=== PATIENT | female | born 1950 | race Caucasian/White ===

== ENCOUNTER → 2017-11-20 | Outpatient (CLI) | payer MEDICARE ==
[~2017-11-20] MED LIST: ACTICIN 5% CREA60 G1; ALBUTEROL INH; ANTACID DOUBLE360 M1 PER TUBE; APAP500 PO; ARTIFICIAL TEA1 EAC1 OP; AUGMENTIN 875-1 EACH PO; AZITHROMYCIN 2250 MG PO; BUSPAR15 MG; CENTANY30 GM TOP; CIPROFLOXACIN500 M1 PO; CLONAZEPAM; CLONAZEPAM 0.50.5 M1 PO; CLONAZEPAM PO; COUMADIN 1MG TAB1 M1 PO; COUMADIN 2 MG TA2 M1 PO; DERMOLATE ANTI-I2 GM; DESYREL50 MG; DESYREL50 MG PO; DIPHENHYDRAMINE25 M3 PO; ENOXAPARIN100 MG/1 M SQ; FLOMAX0.4 MG PO; FLONASE16 GM; GENTEAL GEL DRO15 ML; GERI-MOX ANTAC355 ML PO; HOME MEDICATION PO; HYDROCODON-ACE1 EAC7 PO; HYDROCODON-ACE1 EACH PO; JANTOVEN6 MG PO; LEVOTHYROXIN0.025 MG PO; LIQUID TEARS OPHTHALMIC; METADATE CD20 MG; METHYLIN 10 MG10 M1 PO; METHYLIN 10 MG10 MG PO; METHYLIN10 M1; MIRALAX255 GM PO; NORCO 5-325 TA1 EAC1 PO; NORCO 5-325 TA1 EACH PO; OMEPRAZOLE20 MG; PATADAY2.5 ML OP; PERCOCET 5-3251 EACH PO; PHENERGAN 25 MG25 M1 PO; PRAVACHOL40 MG; PRAVACHOL40 MG PO; PREDNISONE 10 M10 MG; PROAIR HFA8.5 GM INH; PROVENTIL HFA6.7 G1; PROVENTIL HFA6.7 G1 INH; RITALIN LA20 MG PO; ROBAXIN 750 MG750 M1 PO; SIMVASTATIN40 MG PO; SINGULAIR 10 MG10 M1; TRIAMCINOLONE A80 G2 TOP; TYLENOL325 MG PO; VENTOLIN HFA INH8 GM; VICODIN 5-5001 EACH PO; XANAX 0.5 MG0.5 M1; ZOCOR40 MG; ZOFRAN 4 MG ORAL4 MG PO; ZOFRAN ODT4 MG PO; ZOLOFT 50 MG TA50 M1 PO; ZPAK PO; ZYRTEC10 M1
== END ==
LOC: M.RAD 14:22
DX: M25.461 Effusion, right knee (principal); E87.0 Hyperosmolality and hypernatremia

== ENCOUNTER → 2018-06-10 | Outpatient (CLI) | payer OTHER | LOC: M.CT 09:06 | DX: Z13.6 Encounter for screening for cardiovascular disorders (principal); E78.5 Hyperlipidemia, unspecified ==

== ENCOUNTER 2019-06-08 11:02 | Emergency (ER) | payer MEDICARE ==
[~2019-06-08] VITALS: Ht 165.1 cm; Wt 108.9 kg
[~2019-06-08 11:02] MED LIST changes: -AUGMENTIN 500-1 EACH PO
[2019-06-08 13:03] LABS: URINE BILIRUBIN NEGATIVE (Negative); URINE BLOOD NEGATIVE (Negative); URINE CLARITY CLEAR; URINE COLOR YELLOW; URINE GLUCOSE-RANDOM NEGATIVE (Negative); URINE KETONES NEGATIVE (Negative); URINE LEUKOCYTES-REFLEX 1+ (Negative); URINE NITRITE-REFLEX NEGATIVE (Negative); URINE PROTEIN NEGATIVE (Negative); URINE SPECIFIC GRAVITY >= 1.030 (1.005-1.030); URINE UROBILINOGEN 0.2 E.U./dl (0.2-1.0)
[2019-06-08 13:16] LABS: CASTS None Seen /LPF (None Seen); CRYSTALS None Seen /LPF (None Seen); MUCUS 0-3 Light strn/LPF (None Seen); SQUAMOUS 4-10 Moderate /LPF (0-3); URINE RBC 0-2 Rare /HPF (0-2); URINE WBC-REFLEX 6-15 Few /HPF (0-5)
[2019-06-08 13:27] LABS: ABSOLUTE EOSINOPHILS 0.2 thou/uL (0.0-0.7); ABSOLUTE LYMPHOCYTES 2.1 thou/uL (0.8-5.3); ABSOLUTE MONOCYTES 0.5 thou/uL (0.0-1.2); ABSOLUTE NEUTROPHILS 3.2 thou/uL (1.6-8.1); BASOPHILS 0.6 %; EOSINOPHILS 3.4 %; HEMATOCRIT 39.2 % (37.0-47.0); HEMOGLOBIN 13.5 gm/dL (12.0-15.0); LYMPHOCYTES 34.2 %; MCH 29.8 pg (26.0-34.0); MCHC 34.4 g/dL (28.0-37.0); MCV 86.6 fL (80.0-100.0); MPV 8.4 fl. (7.2-11.1); NUCLEATED RBCS 0 /100WBC; PLATELET COUNT* 193 thou/uL (150-400); POLYS 52.8 %; RBC 4.53 mil/uL (4.20-5.00); RDW-CV 14.4 % (10.5-14.5); WBC 6.1 thou/uL (4.0-11.0)
[2019-06-08 13:42] LABS: CALCIUM 8.7 mg/dL (8.5-10.1); POTASSIUM 4.1 mmol/L (3.5-5.1)
[2019-06-08 13:49] LABS: ALBUMIN 3.4 g/dL (3.4-5.0); TOTAL BILIRUBIN 0.2 mg/dL (<0.1-1.0); TOTAL PROTEIN 7.3 g/dL (6.4-8.2)
[2019-06-08] MEDS ORDERED: NORCO 5-325 TA1 EAC1 PO (14:29)
[2019-06-08] MEDS ORDERED: AUGMENTIN 500-1 EACH PO (14:42)
[2019-06-08 15:00] VITALS: BP 142/78
== END 2019-06-08 15:05 | disposition home or self-care (01) ==
LOC: M.ERS 11:02
PROVIDERS: Physician Assistant
DX: N39.0 Urinary tract infection, site not specified (principal); M71.22 Synovial cyst of popliteal space [Baker], left knee; E78.00 Pure hypercholesterolemia, unspecified; F41.0 Panic disorder [episodic paroxysmal anxiety]; F32.9 Major depressive disorder, single episode, unspecified; Z88.1 Allergy status to other antibiotic agents; Z88.6 Allergy status to analgesic agent; Z88.8 Allergy status to other drugs, medicaments and biological substances

== ENCOUNTER → 2019-06-08 | Outpatient (CLI) | payer MEDICARE ==
[~2019-06-08] MED LIST changes: +AUGMENTIN 500-1 EACH PO
== END ==
LOC: M.MRI 15:20
DX: S83.242A Other tear of medial meniscus, current injury, left knee, initial encounter (principal); M71.22 Synovial cyst of popliteal space [Baker], left knee; G89.29 Other chronic pain; E78.5 Hyperlipidemia, unspecified; E03.9 Hypothyroidism, unspecified; F32.9 Major depressive disorder, single episode, unspecified; Z88.1 Allergy status to other antibiotic agents; Z88.6 Allergy status to analgesic agent; Z88.5 Allergy status to narcotic agent; Z88.8 Allergy status to other drugs, medicaments and biological substances; Z79.01 Long term (current) use of anticoagulants; Z86.711 Personal history of pulmonary embolism; X58.XXXA Exposure to other specified factors, initial encounter; Y93.89 Activity, other specified; Y92.89 Other specified places as the place of occurrence of the external cause; Y99.8 Other external cause status

== ENCOUNTER → 2019-10-05 | Outpatient (CLI) | payer MEDICARE ==
[~2019-10-05] MED LIST changes: +AUGMENTIN 500-1 EACH PO
== END ==
LOC: M.CT 15:49
PROVIDERS: Family Medicine
DX: J98.11 Atelectasis (principal); M47.814 Spondylosis without myelopathy or radiculopathy, thoracic region; Z79.01 Long term (current) use of anticoagulants; Z86.711 Personal history of pulmonary embolism; Z88.8 Allergy status to other drugs, medicaments and biological substances; Z88.2 Allergy status to sulfonamides

== ENCOUNTER 2020-06-03 10:24 | Inpatient (IN) | payer MEDICARE ==
[~2020-06-03] VITALS: Ht 165.1 cm; Wt 109.8 kg
--- NOTE | ~2020-06-03 | CON ---
[address] [address] CONSULTATION Name: MALLORIE SANTIAGO Room: [address] IN .R.#: [id number] Admission: 06/03/20 Attend Phys: Jayesh Barajas MD Discharge: Date of : 52 Report #: [id number] THIS REPORT FOR: //name// cc: Arianna Aragon Linda J. DO ~ THIS REPORT FOR: //name// CC: Jayesh Aragon DATE OF SERVICE: 06/06/2020 HISTORY OF PRESENT ILLNESS: This is a 69-year-old female patient who wanted to be seen with a female sock examiner. So, the patient was seen by a female nurse who was present throughout the interview and examination. I discussed the patient with Dr. Ruiz in great detail. This patient apparently has a posttraumatic stress disorder. She is admitted with dizziness for 2-1/2 weeks' duration. It came spontaneously without trauma. History taking is difficult because whenever any question is asked, she goes into too many unnecessarily details on that and not provide any straightforward answer. She said she is having some nausea, vomiting, but she is still able to eat. REVIEW OF SYSTEMS: Positive for posttraumatic stress disorder. She has a history of anxiety and panic attacks with hyperventilation. She has some wire under her left eye. She has a chronic back and muscular pain. She has a history of depression. She has a history of blood clots. She has a history of memory issues. She is allergic to whole lot of medications. She says that she has difficult time doing the CT of the head. She describes a complicated series of events; however, she got an MRI done. PAST MEDICAL HISTORY: Positive for whole lot of allergies. FAMILY HISTORY: Unremarkable. SOCIAL HISTORY: She does not drink alcohol. In fact, she has been labeled as allergic to alcohol. PHYSICAL EXAMINATION: NEUROLOGIC: Indicate that she has an intact speech and she appeared to be oriented and gave her history reasonably well. Cranial nerve examination 2-12 was unremarkable the best it could be carried out. She does not have any nystagmus. She moves all four extremities and take a long time to answer the position sense question but appeared to be present. There is no meningeal sign. I could not look at the fundus. The patient is a reasonably well-built individual. Her [place] [address] CONSULTATION Name: CLARITA SANTIAGOQUAN GUERRERO Room: [address]#: [id number] Admission: 06/03/20 Attend Phys: Jayesh Barajas MD Discharge: Date of : 52 Report #: [id number] VITAL SIGNS: Blood pressure is 111/64, respiration is 18, pulse is 83, temperature is 98.4. LABORATORY DATA: White count is 6.8. She did have a CT scan of the head, which appear unremarkable. IMPRESSION: It is unlikely that there is any neurological etiology for the patient's dizziness. If her dizziness is going on for 2-1/2 weeks, CT scan should have shown something in the posterior fossa. CT can miss small lesions, especially in the posterior fossa, but she said she had some wire in her head and she was not even able to do CT. She needs an evaluation by ENT. I do not know what else can be done with all the allergies and I will give her some thiamine today because she has been having nausea and vomiting and see how she does with physical therapy and talked to MRI if MRI can be done. Thank you very much for this referral. By: [id number] 17Danny Ibrahim MD /nt
[2020-06-03 10:54] VITALS: BP 129/81
[2020-06-03 10:58] LABS: URINE BLOOD 1+ (Negative); URINE CLARITY CLEAR; URINE COLOR YELLOW; URINE GLUCOSE-RANDOM NEGATIVE (Negative); URINE KETONES TRACE (Negative); URINE LEUKOCYTES-REFLEX TRACE (Negative); URINE NITRITE-REFLEX NEGATIVE (Negative); URINE PROTEIN 2+ (Negative); URINE SPECIFIC GRAVITY >= 1.030 (1.005-1.030)
[2020-06-03 10:59] LABS: ICTOTEST (BILI CONFIRMATORY) Negative (Negative); URINE BILIRUBIN 2+ (Negative)
[2020-06-03 11:16] LABS: CASTS None Seen /LPF (None Seen); CRYSTALS None Seen /LPF (None Seen); MUCUS >6 Heavy strn/LPF (None Seen); SQUAMOUS 4-10 Moderate /LPF (0-3); URINE RBC 3-10 Few /HPF (0-2); URINE WBC-REFLEX 6-15 Few /HPF (0-5)
[2020-06-03 11:32] LABS: ABSOLUTE EOSINOPHILS 0.1 thou/uL (0.0-0.7); ABSOLUTE LYMPHOCYTES 1.3 thou/uL (0.8-5.3); ABSOLUTE MONOCYTES 0.5 thou/uL (0.0-1.2); ABSOLUTE NEUTROPHILS 4.8 thou/uL (1.6-8.1); BASOPHILS 0.4 %; EOSINOPHILS 1.7 %; HEMATOCRIT 44.5 % (37.0-47.0); HEMOGLOBIN 15.3 gm/dL (12.0-15.0); LYMPHOCYTES 19.2 %; MCH 30.6 pg (26.0-34.0); MCHC 34.3 g/dL (28.0-37.0); MCV 89.1 fL (80.0-100.0); MPV 8.6 fl. (7.2-11.1); NUCLEATED RBCS 0 /100WBC; PLATELET COUNT* 167 thou/uL (150-400); POLYS 70.7 %; RBC 4.99 mil/uL (4.20-5.00); RDW-CV 13.9 % (10.5-14.5); WBC 6.8 thou/uL (4.0-11.0)
[2020-06-03 11:43] LABS: APTT 40.1 Seconds (25.0-31.3); CALCIUM 8.2 mg/dL (8.5-10.1); CREATININE 1.1 mg/dL (0.6-1.3); INR 3.5; POTASSIUM 3.1 mmol/L (3.5-5.1); PROTIME 34.4 Seconds (9.20-11.50)
[2020-06-03 11:53] LABS: ALBUMIN 3.2 g/dL (3.4-5.0); TOTAL BILIRUBIN 0.4 mg/dL (<0.1-1.0); TOTAL PROTEIN 7.3 g/dL (6.4-8.2)
--- NOTE | 2020-06-03 15:03 | EKG ---
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: MAC : 1950 Requested By: Devan Roberts Order Number: [id number] MD: Ramírez Garcia Measurements Intervals [place] Rate: 72 P: 69 MI: 151 QRS: 44 QRSD: 123 T: 61 QT: 372 QTc: 408 Interpretive Statements Sinus rhythm Nonspecific intraventricular conduction delay Nonspecific T abnrm, anterolateral leads Baseline wander in lead(s) II,III,aVF Compared to ECG 09/20/2016 14:12:01 no change Electronically Signed On 06-03-2020 15:03:27 CDT by Ramírez Garcia [email or web address] <ELECTRONICALLY SIGNED> By: Ramírez Garcia MD, FACC 06/03/20 1503 1052 1052 Ramírez Garcia MD, FAC /EPI
--- NOTE | 2020-06-03 15:30 | NUR ---
ER ADMIT TO ROOM 215. ADMISSION ASSESSMENT COMPLETE, DEFER TO COMPUTER CHARTING. 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 DROWSY, ABLE TO FOLLOW COMMANDS AND ANSWER QUESTION. DENIES PAIN, DIZZINESS AT THIS TIME. ORIENTED TO ROOM/CALL LIGHT, BED ALARM ON FOR SAFETY. 02 ON 2L PER NC, NO SIGN OF RESPIRATORY DISTRESS. HOB ELEVATED, CALL LIGHT WITHIN REACH.
[2020-06-03 15:45] VITALS: BP 129/69
[2020-06-03 16:30] VITALS: BP 118/62
[2020-06-03 20:00] VITALS: BP 131/76
[2020-06-04] VITALS: BP 111/71
[2020-06-04 04:00] VITALS: BP 105/63; BP 96/48; BP 98/67
--- NOTE | 2020-06-04 07:43 | NUR ---
ASSUMED CARE OF PT AFTER REPORT AT 1930. PT A&OX4. VSS. PHYSICAL ASSESSMENT COMPLETED AND CHARTED. PT ON O2 AT 2L NC. PT TRACING SR/SB ON TELE. PT UP WITH 1 ASSIST TO BSC. PT STILL COMPLAINED OF DIZZINESS. FALL PRECAUTIONS IN PLACE. NIH CHARTED. PT ABLE TO SLEEP WELL ON BED. CALL LIGHT WITHIN REACH.
[2020-06-04 08:30] VITALS: BP 1123/62
[2020-06-04 12:12] VITALS: BP 117/64
[2020-06-04 15:47] VITALS: BP 116/56
--- NOTE | 2020-06-04 18:47 | NUR ---
pt has remained alert, oriented x 4. cooperative with staff. still prefers female staff to care for her. medicated x 1 with zofran for c/o nausea. no emisis.
[2020-06-04 20:00] VITALS: BP 133/71
[2020-06-05] VITALS: BP 120/65
[2020-06-05 04:00] VITALS: BP 128/75
[2020-06-05 06:09] LABS: CALCIUM 8.1 mg/dL (8.5-10.1); CREATININE 1.1 mg/dL (0.6-1.3); MAGNESIUM 1.8 mg/dL (1.8-2.4); POTASSIUM 4.4 mmol/L (3.5-5.1)
--- NOTE | 2020-06-05 07:45 | NUR ---
ASSUMED CARE OF PT AFTER REPORT AT 1930. PT A&OX4. VSS. PHYSICAL ASSESSMENT COMPLETED AND CHARTED. PT ON O2 AT 2L NC. PT TRACING SR ON TELE. PT UP WITH 1 ASSIST. PT DENIES PAIN. FALL PRECUATIONS IN PLACE.
[2020-06-05 08:00] VITALS: BP 128/71
[2020-06-05 13:06] VITALS: BP 121/55
[2020-06-05 16:05] VITALS: BP 113/63
--- NOTE | 2020-06-05 18:30 | NUR ---
Pt Aox4. Pt up with assist x1 to bsc with gb. No c/o pain this shift. Pt arrived to unit from 2W at 1430 this afternoon, report from Анна HILTON. Pt stable and tolerating regular diet. Hourly rounding complete. Will continue to monitor
[2020-06-05 21:00] VITALS: BP 141/66
[2020-06-06 07:30] VITALS: BP 111/53
--- NOTE | 2020-06-06 07:31 | NUR ---
Alert and oriented x 4. Up with assist to the bedside commode. Vitals are stable. She has slept well.
--- NOTE | 2020-06-06 10:45 | NUR ---
VISITED WITH PT. SHE WAS STILL HAVING DIZZINESS BUT WAS SOME BETTER. SHE COULD TURN HER HEAD TO THE SIDE WITHOUT DIZZINESS BUT STILL WAS NAUSEOUS AT TIMES. SHE LIVES ALONE. HAS A DOG. HAS A WALKER BUT WOULD LIKE TO GET ONE WITH A SEAT. SHE IS INDEPENDENT AT HOME. HAS TROUBLE AT TIMES WITH TRANSPORTATON.SHE WILL GET FRIENDS TO DRIVE HER PLACES. HAS SEVERAL GOOD FRIENDS. HAS A SISTER IN [place], BROTHER IN [place] AND A BROTHER IN [place]. SHE IS NOT CLOSE TO HER SIBLINGS. PT.GOES TO [place] [facility] FOR PTSD. SHE IS IN THE [employer] [facility] FOR RIDES. 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 PER PT. HE IS AFFILIATED WITH 07/02 TAX[employer] WHICH [facility] USES FOR DISCHARGE RIDES. ASK FOR WEB PRODUCTION ARTIST ALYCE SALGADO,TAXI 760. PT.HAS TO HAVE THINGS ON COLORED PAPER. CANNOT READ FROM BLACK AND WHITE. DISCUSSED DPOA FOR HEALTH CARE DECISONS. SHE HAS BEEN THINKING ABOUT GETTING ONE. CM COPIED ONE ON PINK PAPER FOR PT.TO HAVE. ALSO IF A MALE PERSONEL COMES TO HER ROOM, A FEMALE NEEDS TO BE PRESENT ALSO. PT.WAS VERY COMPLIMENTARY OF HER CARE HERE. SAID SHE HAS HAD A WONDERFUL EXPERIENCE. EVERYBODY HAS BEEN SO CHEERFUL AND HELPFUL TO HER. DISCUSSED HOME HEALTH. SHE SAID SHE WOULD NOT HAVE IT , SHE DOESN'T ALLOW ANYONE IN HER HOUSE. SHE SAID SHE DOESN'T EVEN LET HER FRIENDS COME TO HER HOUSE. CM WILL FOLLOW.
[2020-06-06 12:36] VITALS: BP 114/63
[2020-06-06 12:37] VITALS: BP 114/72; BP 99/60
--- NOTE | 2020-06-06 14:52 | NUR ---
Nutrition: Pt admitted with dizziness, UTI. Seen for high BMI. Usual wt is 240s. BMI 40.3. Regular diet. Spoke with her RN, pt is eating 100%. No vomiting. Albumin 3.2. Physician noted PCM - defer DX. Mild risk at this time.
[2020-06-06 16:13] VITALS: BP 111/64
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
[2020-06-06 20:12] VITALS: BP 111/64
--- NOTE | 2020-06-07 05:56 | NUR ---
PT A&OX4, ON 1L NC, VSS, NO REPORTS OF DIZZINESS THIS SHIFT, PT HAS SLEPT WELL THROUGHOUT NIGHT. HOURLY ROUNDINGS COMPLETE, WILL CONTINUE TO MONITOR.
[2020-06-07 07:30] VITALS: BP 135/65
[2020-06-07 09:49] LABS: INR 1.3
[2020-06-07] MEDS ORDERED: VITAMIN B-121000 MC3 PO (10:07)
--- NOTE | 2020-06-07 15:01 | NUR ---
SPOKE WITH PT.EARLIER ABOUT DISCHARGE TODAY. SHE CONTINUED TO DECLINE HOME HEALTH. SAID HER LEAD TEACHER WILL BE ABLE TO PICK HER UP AFTER 6 PM. CM SPOKE WITH LEAD TEACHER ALYCE SALGADO, ON PHONE. HE SAID OUR CAB VOUCHER WOULD BE FINE. Z TRIP IS UNDER THE SAME ELECTRICIAN CHIEF 07/02. SHE WAS HOPING TO BE ABLE TO GO TO [facility] FOR F/U ENT APPT. [facility] DOES NOT HAVE ENT. PT.INFORMED.
[2020-06-07 17:43] VITALS: BP 135/65
--- NOTE | 2020-06-07 19:01 | NUR ---
DISCHARGED TO HOME. TAKEN OUT BY W/C BY NURSING STAFF. Q-TRIP TAXFany TOOK HER HOME PER PT REQUEST. A&OX 4, PWD. IV DC'D WITH CATH CANNULA INTACT. PRESSURE APPLIED UNTIL BLEEDING CEASED AND COTTON BALL AND TAPE APPLIED. PT VERALIZED UNDERSTANDING TO ALL DISCHARGE INSTRUCTIONS AND FOLLOW UP DOCTOR VISITS. NO C/O PAIN OR DIZZINESS AT DISCHARGE.
== END 2020-06-07 19:05 | disposition home or self-care (01) | DRG 689 ==
LOC: M.ERS 10:24 → M.ORTHSURG 13:12 → M.2W 13:12 → M.TBA-ER 13:12 → M.2W 15:43 → M.ORTHSURG 06-05 14:40
PROVIDERS: Family Medicine; Internal Medicine; ADMIT Internal Medicine; ATTEND Internal Medicine
DX: N30.01 Acute cystitis with hematuria (principal); G93.41 Metabolic encephalopathy; E44.0 Moderate protein-calorie malnutrition; Z68.41 Body mass index [BMI] 40.0-44.9, adult; D68.59 Other primary thrombophilia; H81.399 Other peripheral vertigo, unspecified ear; E78.00 Pure hypercholesterolemia, unspecified; G89.29 Other chronic pain; M54.9 Dorsalgia, unspecified; H81.10 Benign paroxysmal vertigo, unspecified ear; M79.10 Myalgia, unspecified site; F32.9 Major depressive disorder, single episode, unspecified; F41.1 Generalized anxiety disorder; E86.9 Volume depletion, unspecified; E87.6 Hypokalemia; E66.9 Obesity, unspecified; E53.8 Deficiency of other specified B group vitamins; Z20.828 Contact with and (suspected) exposure to other viral communicable diseases; F43.10 Post-traumatic stress disorder, unspecified; X58.XXXA Exposure to other specified factors, initial encounter; Y93.89 Activity, other specified; Y92.89 Other specified places as the place of occurrence of the external cause; Y99.8 Other external cause status; Z87.442 Personal history of urinary calculi; Z88.6 Allergy status to analgesic agent; Z88.3 Allergy status to other anti-infective agents; Z88.2 Allergy status to sulfonamides; Z88.8 Allergy status to other drugs, medicaments and biological substances; Z82.49 Family history of ischemic heart disease and other diseases of the circulatory system

== ENCOUNTER → 2021-01-30 | Outpatient (CLI) | payer MEDICARE ==
[~2021-01-30] MED LIST changes: +VITAMIN B-121000 MC3 PO
== END ==
LOC: M.ULTRA 16:30
PROVIDERS: ATTEND Family Medicine
DX: M71.22 Synovial cyst of popliteal space [Baker], left knee (principal); M79.89 Other specified soft tissue disorders; R60.0 Localized edema

== ENCOUNTER 2021-09-30 21:39 | Observation (INO) | payer MEDICARE ==
[~2021-09-30] VITALS: Ht 165.1 cm; Wt 104.3 kg
[~2021-09-30 21:39] MED LIST changes: -LEVOTHYROXIN0.025 MG PO; +SYNTHROID25 MC1 PO
[2021-09-30 22:44] VITALS: BP 138/109
[2021-09-30] MEDS ORDERED: JANTOVEN6 MG PO (22:50)
[2021-09-30] MEDS ORDERED: WARFARIN SODIUM6 MG PO (22:51)
[2021-10-01 00:23] LABS: URINE BLOOD NEGATIVE (Negative); URINE CLARITY CLEAR; URINE COLOR YELLOW; URINE GLUCOSE-RANDOM NEGATIVE (Negative); URINE KETONES 2+ (Negative); URINE LEUKOCYTES-REFLEX TRACE (Negative); URINE NITRITE-REFLEX NEGATIVE (Negative); URINE PROTEIN TRACE (Negative); URINE SPECIFIC GRAVITY 1.025 (1.005-1.030)
[2021-10-01 00:24] LABS: ICTOTEST (BILI CONFIRMATORY) Negative (Negative); URINE BILIRUBIN 1+ (Negative)
[2021-10-01 00:37] LABS: CASTS None Seen /LPF (None Seen); CRYSTALS None Seen /LPF (None Seen); MUCUS 4-6 Moderate strn/LPF (None Seen); SQUAMOUS 0-3 Few /LPF (0-3); URINE RBC 3-10 Few /HPF (0-2); URINE WBC-REFLEX 0-5 Rare /HPF (0-5)
[2021-10-01 00:50] LABS: ABSOLUTE LYMPHOCYTES 0.9 thou/uL (0.8-5.3); ABSOLUTE MONOCYTES 0.3 thou/uL (0.0-1.2); ABSOLUTE NEUTROPHILS 1.5 thou/uL (1.6-8.1); EOSINOPHILS 1.1 %; WBC 2.8 thou/uL (4.0-11.0)
[2021-10-01 00:52] LABS: BASOPHILS 0.5 %; HEMATOCRIT 42.3 % (37.0-47.0); HEMOGLOBIN 14.2 gm/dL (12.0-15.0); LYMPHOCYTES 32.1 %; MCH 29.9 pg (26.0-34.0); MCHC 33.6 g/dL (28.0-37.0); MONOCYTES 11.9 %; MPV 8.2 fl. (7.2-11.1); NUCLEATED RBCS 0 /100WBC; PLATELET COUNT* 99 thou/uL (150-400); POLYS 54.4 %; RBC 4.75 mil/uL (4.20-5.00); RDW-CV 13.4 % (10.5-14.5)
[2021-10-01 01:04] LABS: CALCIUM 8.2 mg/dL (8.5-10.1); POTASSIUM 3.8 mmol/L (3.5-5.1)
[2021-10-01 01:06] LABS: INR 1.2; PROTIME 11.9 Seconds (9.20-11.50)
[2021-10-01 01:21] LABS: ALBUMIN 3.2 g/dL (3.4-5.0); MAGNESIUM 1.8 mg/dL (1.8-2.4); TOTAL BILIRUBIN 0.5 mg/dL (<0.1-1.0); TOTAL PROTEIN 6.4 g/dL (6.4-8.2)
[2021-10-01 05:54] VITALS: BP 128/72
[2021-10-01 10:34] VITALS: BP 126/59
[2021-10-01 11:31] VITALS: BP 126/59
--- NOTE | 2021-10-02 13:13 | EKG ---
[place] [address] ELECTROCARDIOGRAM REPORT Name: CLARITA SANTIAGOECCA CESAR Room: [address]#: [id number] Admission: 10/01/21 Attend Phys: Barron Worthington, Discharge: 10/01/21 Date of : 52 Date of Service: 09/30/21 2257 Report #: [id number] THIS REPORT FOR: //name// 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 : 1950 Requested By: Devan Roberts Order Number: [id number] MD: Marcial Stafford Measurements Intervals [place] Rate: 76 P: 30 NC: 154 QRS: 32 QRSD: 100 T: 60 QT: 398 QTc: 448 Interpretive Statements Sinus rhythm Nonspecific T abnormalities, anterior leads Compared to ECG 06/03/2020 10:52:50 T-wave abnormality now present Intraventricular conduction delay no longer present Electronically Signed On 10-02-2021 13:13:17 CAR FERRIER by Marcial Stafford [email or web address] <ELECTRONICALLY SIGNED> By: Marcial Stafford MD, FACC 10/02/21 1313 2257 2257 Marcial Stafford MD, [facility] /EPI
== END 2021-10-01 11:37 | disposition home or self-care (01) ==
LOC: M.ERS 21:39 → M.TBA-ER 10-01 02:31
PROVIDERS: Emergency Medicine; ADMIT Internal Medicine; ATTEND Internal Medicine
DX: U07.1 COVID-19 (principal); R42 Dizziness and giddiness; R53.1 Weakness; E78.00 Pure hypercholesterolemia, unspecified; F41.9 Anxiety disorder, unspecified; F32.9 Major depressive disorder, single episode, unspecified; E66.9 Obesity, unspecified; G89.29 Other chronic pain; F43.10 Post-traumatic stress disorder, unspecified; Z79.01 Long term (current) use of anticoagulants; Z79.899 Other long term (current) drug therapy; Z87.442 Personal history of urinary calculi; Z88.8 Allergy status to other drugs, medicaments and biological substances; Z98.890 Other specified postprocedural states; Z88.1 Allergy status to other antibiotic agents